=== PATIENT | male | born 1985 | race Two or more races ===

== ENCOUNTER 2019-10-22 08:48 | Outpatient (CLI) | payer OTHER ==
--- NOTE | 2019-10-23 23:51 | Ultrasound Report ---
Reason: LUQ ABD PAIN Procedure Date: 10/22/2019 Accession Number: [id number] / [id number] Procedure: US - Abdomen Limited CPT Code: Final Report FULL RESULT: EXAM: ABDOMEN ULTRASOUND LIMITED, LUQ EXAM DATE: 10/22/2019 09:24 AM. CLINICAL HISTORY: Intermittent left upper quadrant pain, worsening over last 2 weeks. COMPARISON: None. TECHNIQUE: Real-time scanning was performed with static images obtained. FINDINGS: Spleen: Normal in size. Left kidney: 10.4 cm in length with no sign of stone, mass, or hydronephrosis. No free fluid. IMPRESSION: Normal. No cause for pain identified. [facility]
== END 2019-10-22 08:49 | disposition home or self-care (01) ==
LOC: DI 08:48
PROVIDERS: ATTEND Physician Assistant
DX: R10.12 Left upper quadrant pain (principal)
CPT/HCPCS: 76705